=== PATIENT | female | born 2000 | race Caucasian/White ===

== ENCOUNTER 2024-11-27 07:37 | Emergency (ER) | payer OTHER, SELFPAY ==
[2024-11-27 07:39] VITALS: BP 134/89
--- NOTE | 2024-11-27 08:15 | ED.GENMED ---
History of Present Illness
General
Chief Complaint: Abdominal Pain
Source: patient and family
Exam Limitations: none
Time Seen by Provider: 11/27/24 08:02
Nursing documentation reviewed up to this point in time: agreed with
History of Present Illness
History of Present Illness:
Patient presents to ED secondary to intermittent abdominal pain over the past 4 days. Abdominal pain described as crampy, lower abdomen, nonradiating, without any alleviating or exacerbating factors. Patient was evaluated urgent care center
yesterday. Patient reports decreased appetite since onset of pain. Denies fever or chills. Denies trauma. Denies back pain. Denies difficulty with urination. Denies recent change in diet. Denies recent change in medications. Patient reports
having returned from a [employer] in [place] 2 weeks ago. Denies sick contact. Denies previous history of similar symptoms. Patient does state that she is about to start her menstrual cycle. However, she denies having had previous
similar episodes preceding her menstrual cycle in the past. There is no family history of colon disease.
Past History
Past History
ED Past Medical History: None; Negative Asthma, HTN, Hypercholesterolemia or NIDDM
ED Past Surgical History: None
Social History
Tobacco: Non-smoker
Alcohol: None
Personal: Single
Living: with family
Review of Systems
Review of Systems
Allergies reviewed?: Yes
All Other Systems: ROS reviewed and negative except as documented in HPI and ROS
Constitutional: Reports no symptoms; Denies fever
Respiratory: Reports no symptoms
Cardiac: Reports no symptoms
ABD/GI: Reports abdominal pain and nausea; Denies vomiting or diarrhea
: Reports no symptoms
Musculoskeletal: Reports no symptoms
Skin: Reports no symptoms
Neurological: Reports no symptoms
Phy Exam
Physical Exam
Physical Exam:
Physical Exam
General: mild painful distress, not acutely ill. afebrile
Head: nc/at. eomi
Neck: supple. normal range of motion.
Heart: s1/s2 regular rate and rhythm
Lungs: no acute respiratory distress. clear bilaterally
Abdomen: normal bowel sounds. no distention. mild suprapubic tenderness to palpation. no cva tenderness
Neuro: alert and oriented x 3. no focal neurological deficits
Skin: no rash
Psychiatric: well kept. interactive and cooperative
Extremities: no edema. no calf tenderness
Course
Orders/Labs/Results
Orders:
Orders
11/27/24 08:13
Ketorolac [Toradol] 15 mg IV NOW STA
US Pelvis W Transvag Combined Urgent
Comment:
Reason For Exam: lower abd pain
11/27/24 08:14
0.9% Sodium Chloride 500 ml [Nss] 500 ml IV BOLUS
Test Result ONCE
11/27/24 08:17
Pantoprazole [Protonix IV] 40 mg IV NOW STA
11/27/24 08:26
Complete Blood Count/With Diff Urgent
Comprehensive Metabolic Panel Urgent
HCG, Serum Qualitative Screen Urgent
Lipase Urgent
11/27/24 11:23
Urinalysis Reflex To Culture Urgent
Date Specimen was Collected: 11/27/24
Time Specimen was Collected: 10:26
Urine Microscopic Reflex Cult Urgent
Urine Culture Urgent
LUIS Source: U
Specimen Description:
Date Specimen was Collected: 11/27/24
Time Specimen was Collected: 10:26
11/27/24 13:11
CT Abd/pel W Iv And Oral Contr Urgent
Comment:
Reason For Exam: lower abd pain
Iohexol [Omnipaque] See Protocol PO NOW STA
Abnormal Lab Results
11/27/24 11/27/24
08:26 11:23
MPV 11.1 H fL
(7.4-10.4)
BUN 6 L mg/dl
(7-17)
Glucose 101 H mg/dl
(70-99)
Leukocyte Esterase Rfl 1+ A
(Negative)
Urine Bacteria (Reflex) Few A
(Negative)
11/27/24 08:26
11/27/24 08:26
Vital Signs
Initial and Last Documented VS:
Initial Vital Signs
Temp Pulse Resp BP Pulse Ox
98.8 F 96 16 134/89 100
11/27/24 07:39 11/27/24 07:39 11/27/24 07:39 11/27/24 07:39 11/27/24 07:39
Last Documented Vital Signs
Temp Pulse Resp BP Pulse Ox
98.8 F 96 16 129/82 97
11/27/24 07:39 11/27/24 07:39 11/27/24 07:39 11/27/24 11:24 11/27/24 11:30
MDM/Problems Addressed
MDM/Problems Addressed:
Patient with an unremarkable workup in ED, including blood work, double ultrasound, and CT abdomen pelvis. Otherwise, patient remains afebrile, hemodynamically stable, and nontoxic-appearing. Based on CT findings, with patient having had
difficulty with bowel movements recently, will recommend diet modification, stool softener, along with MiraLAX as an outpatient. Patient given outpatient GI information for potential outpatient consultation. Patient expresses understanding,
discharge, to the care of her mother.
*Pulse Oximetry
SaO2: 100
Oxygen Mode of Delivery: Room air
Patient hypoxic: no
*Critical Care Note
Total Time (30-74mins, 75-104mins- exclusive of procedures): Not Applicable
ED Attending Note
-
Portions of this chart may have been created with voice recognition software.� Occasional wrong word or��sound alike� substitutions may have occurred due to the inherent limitations of voice recognition software.
Discharge Plan
Departure
Patient Disposition: Home (Routine Discharge)
Date of Disposition: 11/27/24
Time of Disposition: 16:05
Patient with high blood pressure during this ER visit?: Yes
Condition: Good
Discharge Problem:
Abdominal pain
Instructions: Constipation, Adult (DC), High-fiber diet, Abdominal Pain
Prescriptions:
No Action
No Current Medications
0
Referrals:
Deysi Villa MD [Family Provider, Internal Medicine]
Facundo Blount MD [Active, Gastroenterology]
Activity Restrictions/Additional Instructions:
As discussed, please follow-up with your primary care physician and/or referred to GI physician for further evaluation and treatment. In the meantime, recommend diet modification along with stool softener/laxative as an outpatient. Please consider
return to ED with your symptoms, i.e. fever/worsening pain/vomiting.
Interventions
Interventions:
*Risk Screen - Suicide Last Done: 11/27/24 07:47
*Neglect/Abuse Screening Last Done: 11/27/24 07:47
*ED- Fall Risk Assessment Last Done: 11/27/24 07:47
*ED COVID-19 Vaccine History Last Done: 11/27/24 07:47
DZ-Rbrbhz-Opfjftpkaj Assessment Last Done: 11/27/24 08:31
Discharge Date and Time
Print Language: PAKISTANI
[2024-11-27] MEDS: NSS 500 IV (08:24)
[2024-11-27] MEDS: PROTONIX IV 40 MG IV (08:25)
[2024-11-27] MEDS: TORADOL 15 MG IV (08:25)
[2024-11-27 08:27] VITALS: BP 118/70
[2024-11-27 08:38] LABS: Hematocrit 43.6 % (37.0-47.0); Hemoglobin 14.7 g/dL (12.0-16.0); Mean Corp Hgb Conc. 33.7 g/dL (33.0-37.0); Mean Corpuscular Volume 83.0 fL (81.0-99.0); Nucleated Red Blood Cells % 0 %; Platelet Count 228 10^3/uL (130-400); Red Cell Dist. Width 12.4 % (11.5-14.5)
[2024-11-27 09:00] VITALS: BP 105/67
[2024-11-27 09:03] LABS: HCG, Serum Qualitative Screen Negative
[2024-11-27 09:20] LABS: ALT (SGPT) 22 U/L (0-35); AST (SGOT) 21 U/L (14-36); Albumin 4.5 g/dl (3.5-5.0); Alkaline Phosphatase 91 U/L (38-126); Blood Urea Nitrogen 6 mg/dl (7-17); Calcium 9.5 mg/dl (8.4-10.2); Carbon Dioxide 24 mmol/L (22-30); Chloride 107 mmol/L (98-107); Glucose 101 mg/dl (70-99); Lipase 38 U/L (23-300); Potassium 4.3 mmol/L (3.5-5.1); Sodium 138 mmol/L (135-145); Total Protein 7.2 g/dl (6.3-8.2); eGFR > 60.00
[2024-11-27 10:00] VITALS: BP 121/58
[2024-11-27 11:24] VITALS: BP 129/82
[2024-11-27 11:50] LABS: Urine Character Clear (Clear)
[2024-11-27 12:06] LABS: Urine Squamous Cell 26-30 /LPF (Few)
[2024-11-27 12:07] LABS: Urine Red Blood Cell 0-2 /HPF (0-2)
[2024-11-27] MEDS: OMNIPAQUE 50 ML PO (13:28)
[2024-11-27 17:05] VITALS: BP 131/79
== END 2024-11-27 17:06 | disposition home or self-care (01) ==
LOC: EMR 07:37
PROVIDERS: EMERGENCY PHYSICIAN Emergency Medicine; FAMILY PHYSICIAN Hospitalist
DX: R10.9 Unspecified abdominal pain (principal)
CPT/HCPCS: 99284; 96374; 96375; 96361; 74177; 76830; 76856; 80053; 81003; 81015; 83690; 84703; 85025; 87086; Q9967

== ENCOUNTER → 2025-03-19 07:45 | Outpatient (REF) | payer OTHER, SELFPAY | LOC: EMG 07:45 | PROVIDERS: ATTENDING PHYSICIAN Nurse Practitioner; FAMILY PHYSICIAN Hospitalist | DX: M79.602 Pain in left arm (principal); M79.601 Pain in right arm; G56.03 Carpal tunnel syndrome, bilateral upper limbs; R20.0 Anesthesia of skin | CPT/HCPCS: 95886; 95911 ==